=== PATIENT | female | born 1990 | race African-American/Black ===

== ENCOUNTER 2018-06-18 08:35 | Emergency (ER) | payer MEDICAID ==
[~2018-06-18] VITALS: Ht 157.5 cm; Wt 63.5 kg
[~2018-06-18 08:35] MED LIST: IRON PILLS
[2018-06-18 08:43] VITALS: BP 116/77
== END 2018-06-18 09:45 | disposition left against medical advice (07) ==
LOC: ER 08:35
DX: S41.111D Laceration without foreign body of right upper arm, subsequent encounter (principal); Z53.21 Procedure and treatment not carried out due to patient leaving prior to being seen by health care provider; X58.XXXD Exposure to other specified factors, subsequent encounter

== ENCOUNTER 2019-05-30 11:02 | Emergency (ER) | payer MEDICAID ==
[~2019-05-30] VITALS: Ht 157.5 cm; Wt 67.1 kg
[2019-05-30 11:19] VITALS: BP 99/60
== END 2019-05-30 15:04 | disposition left against medical advice (07) ==
LOC: ER 11:02
DX: Z48.01 Encounter for change or removal of surgical wound dressing (principal); Z53.21 Procedure and treatment not carried out due to patient leaving prior to being seen by health care provider

== ENCOUNTER 2019-12-03 03:32 | Emergency (ER) | payer MEDICAID ==
[~2019-12-03] VITALS: Ht 157.5 cm; Wt 63.5 kg
[2019-12-03 04:09] VITALS: BP 117/64
[2019-12-03] MEDS ORDERED: cefTRIAXone SOD 1,000 MG VL IM ONE (05:15)
== END 2019-12-03 05:37 | disposition home or self-care (01) ==
LOC: ER 03:32
DX: K04.7 Periapical abscess without sinus (principal); K02.9 Dental caries, unspecified
CPT/HCPCS: 96372; 99283; J0696

== ENCOUNTER 2020-08-09 18:34 | Emergency (ER) | payer MEDICAID ==
[~2020-08-09] VITALS: Ht 157.5 cm; Wt 67.1 kg
[2020-08-09 18:52] VITALS: BP 100/74
[2020-08-09] MEDS ORDERED: IOHEXOL 300 MG/ML 100ML BOTTLE IJ ONE (19:10)
== END 2020-08-09 23:15 | disposition left against medical advice (07) ==
LOC: ER 18:34
DX: S00.81XA Abrasion of other part of head, initial encounter (principal); R07.9 Chest pain, unspecified; M54.2 Cervicalgia; Z53.21 Procedure and treatment not carried out due to patient leaving prior to being seen by health care provider; W22.8XXA Striking against or struck by other objects, initial encounter; Y93.89 Activity, other specified; Y92.89 Other specified places as the place of occurrence of the external cause; Y99.8 Other external cause status
CPT/HCPCS: 70450; 70486; 72125; Q9967